=== PATIENT | female | born 2005 | race Caucasian/White ===

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

== ENCOUNTER → 2025-01-23 | Outpatient (REF) | payer OTHER ==
[~2025-01-23] MED LIST: CITA10TA7; HYDR-3363; ONDA-282 PO; PRENTAB7
== END ==
LOC: M PLALAB 15:47
PROVIDERS: ATTEND Advanced Practice Midwife
DX: Z53.9 Procedure and treatment not carried out, unspecified reason (principal)

== ENCOUNTER 2025-01-24 13:25 | Emergency (ER) | payer MEDICAID, OTHER, SELFPAY ==
[~2025-01-24] VITALS: Ht 157.5 cm; Wt 47.7 kg
[2025-01-24] MEDS ORDERED: PRENTAB7 (13:40)
[2025-01-24] MEDS ORDERED: HYDR-3363 (13:40)
[2025-01-24] MEDS ORDERED: CITA10TA7 (13:40)
[2025-01-24 15:37] LABS: BASO # 0.0 10^3/uL (0.0-0.2); BASO % 0.2 % (0.0-1.0); EOS # 0.2 10^3/uL (0.0-0.5); EOS % 1.4 % (0.0-3.0); LYMPH # 2.4 10^3/uL (1.5-5.0); LYMPH % 19.5 % (24.0-44.0); MONO # 0.9 10^3/uL (0.0-0.8); MONO % 7.3 % (2.0-8.0); NEUTROPHILS # 8.9 10^3/uL (1.5-8.5); NEUTROPHILS % 71.3 % (36.0-66.0); PLATELET COUNT, AUTOMATED 272 10^3/uL (150-450)
[2025-01-24 15:48] LABS: INR 1.0
[2025-01-24 16:01] LABS: ALT/SGPT 16 U/L (7.0-40); AST/SGOT 19 U/L (<34); CALCIUM LEVEL 9.5 MG/DL (8.5-10.1); CARBON DIOXIDE LEVEL 27 MMOL/L (20-31); CHLORIDE LEVEL 103 MMOL/L (98-107); CREATININE FOR GFR 0.57 MG/DL (0.55-1.30); GLOMERULAR FILTRATION RATE > 90.0 (>60); POTASSIUM SERUM 4.1 MMOL/L (3.5-5.1); SODIUM LEVEL 140 MMOL/L (136-145)
[2025-01-24 16:46] LABS: HCG, SERUM QUANTITATIVE 149636.4 MIU/ML (<4.2)
[2025-01-24] MEDS ORDERED: ONDA-282 PO (17:13)
[2025-01-24 17:20] VITALS: BP 106/59; TEMP 98.8; O2SAT 100
== END 2025-01-24 17:29 | disposition home or self-care (01) ==
LOC: M ED 13:25
DX: K92.0 Hematemesis (principal); Z79.899 Other long term (current) drug therapy; Z79.810 Long term (current) use of selective estrogen receptor modulators (SERMs)

== ENCOUNTER → 2025-02-20 | Outpatient (CLI) | payer OTHER, SELFPAY ==
[2025-02-20 18:05] LABS: PLATELET COUNT, AUTOMATED 256 10^3/uL (150-450)
[2025-02-20 18:27] LABS: FREE T4 1.20 NG/DL (0.83-1.43)
[2025-02-20 18:51] LABS: HIV 1&2 SCREEN NEGATIVE (NEGATIVE)
[2025-02-20 19:00] LABS: HEPATITIS C VIRUS ABY INDEX 0.04 INDEX (<0.8)
[2025-02-20 19:34] LABS: Trichomonas vaginalis (AMP) NOT DETECTED (NEGATIVE)
[2025-02-20 19:58] LABS: GC DNA AMPLIFICATION NEGATIVE (NEGATIVE)
== END ==
LOC: M PLALAB 16:14
PROVIDERS: ATTEND Advanced Practice Midwife
DX: Z34.01 Encounter for supervision of normal first pregnancy, first trimester (principal)

== ENCOUNTER → 2025-04-04 | Outpatient (CLI) | payer MEDICAID, OTHER, SELFPAY ==
[~2025-04-04] MED LIST changes: +OSEL75CA2 PO; +REGL10TA6 PO
== END ==
LOC: M WHC 13:55
PROVIDERS: ATTEND Nurse Practitioner Family
DX: Z34.02 Encounter for supervision of normal first pregnancy, second trimester (principal)